=== PATIENT | male | born 1955 | race Caucasian/White ===

== ENCOUNTER → 2019-05-02 | Outpatient (CLI) | payer OTHER | END | disposition home or self-care (01) | LOC: PETCFH 09:17 | PROVIDERS: ATTEND Otolaryngology | DX: C02.9 Malignant neoplasm of tongue, unspecified (principal) | CPT/HCPCS: 78815; A9552 ==

== ENCOUNTER 2019-05-13 09:04 | Outpatient (CLI) ==
[2019-05-13] MEDS ORDERED: MULT-520 PO (09:40)
[2019-05-13] MEDS ORDERED: ATOR20TA37 PO (09:40)
[2019-05-13] MEDS ORDERED: LISI1TAB20 PO (09:40)
[2019-05-13 10:09] LABS: BASOPHILS # (AUTO) 0.05 x10^3/uL (0-0.1); BASOPHILS % (AUTO) 1 % (0-1); EOSINOPHILS # (AUTO) 0.07 x10^3/uL (0-0.4); EOSINOPHILS % (AUTO) 1 % (1-7); LYMPHOCYTES # (AUTO) 1.65 x10^3/uL (1-3.4); LYMPHOCYTES % (AUTO) 19 % (22-44); MD NO; MEAN CORPUSCULAR HGB CONC 33.2 g/dL (33.2-36.2); MEAN CORPUSCULAR VOLUME 90.4 fL (81-97); MONOCYTES # (AUTO) 0.54 x10^3/uL (0.2-0.8); MONOCYTES % (AUTO) 6 % (2-9); NEUTROPHILS # (AUTO) 6.56 x10^3/uL (1.8-6.8); NEUTROPHILS % (AUTO) 74 % (42-75); PLATELET COUNT 290 x10^3/uL (130-400); RED BLOOD COUNT 5.57 x10^6/uL (4.38-5.82)
[2019-05-13 10:13] LABS: CALCIUM 9.3 mg/dL (8.5-10.1); CHLORIDE 107 mmol/L (98-107)
[2019-05-13 10:21] LABS: ALANINE AMINOTRANSFERASE 29 U/L (12-78); ALKALINE PHOSPHATASE 93 U/L (45-117); ANION GAP 7 mmol/L (5-15); BILIRUBIN,TOTAL 0.8 mg/dL (0.2-1.0); TOTAL PROTEIN 8.3 g/dL (6.4-8.2)
== END 2019-05-13 23:59 | disposition home or self-care (01) ==
LOC: STAR 09:04
PROVIDERS: ATTEND Otolaryngology
DX: Z01.818 Encounter for other preprocedural examination (principal); C02.9 Malignant neoplasm of tongue, unspecified
CPT/HCPCS: 36415; 80053; 85025; 93005

== ENCOUNTER 2019-05-16 17:30 | Inpatient (IN) | payer OTHER ==
[~2019-05-16] VITALS: Ht 182.9 cm; Wt 101.7 kg
[~2019-05-16 17:30] MED LIST: ATOR20TA37 PO; LISI1TAB20 PO; MULT-520 PO
[2019-05-21] MEDS ORDERED: LACTATED RINGERS 1,000 ML IV SCH ×2 (15:12→23:00)
[2019-05-21] MEDS ORDERED: ACETAMINOPHEN 500 MG TABLET PO ONE (15:30)
[2019-05-21] MEDS ORDERED: GABAPENTIN 300 MG CAPSULE PO ONE (15:30)
[2019-05-21] MEDS ORDERED: LIDOCAINE 1%-EPI 1:100K, 20ML ONE (15:50)
[2019-05-21] MEDS ORDERED: REMIFENTANIL 2 MG ONE (16:29)
[2019-05-21] MEDS ORDERED: FENTANYL PF 250 MCG/5ML ONE (16:33)
[2019-05-21] MEDS ORDERED: MIDAZOLAM 1 MG/ML, 2ML ONE (17:16)
[2019-05-21] MEDS ORDERED: EPHEDRINE 50 MG/ML, 1ML ONE (17:56)
[2019-05-21] MEDS ORDERED: PROPOFOL 10 MG/ML, 20ML ONE (19:50)
[2019-05-21] MEDS ORDERED: ONDANSETRON 2MG/ML, 2ML ONE (19:50)
[2019-05-21] MEDS ORDERED: DEXAMETHASONE 4 MG/ML, 1ML ONE (19:50)
[2019-05-21] MEDS ORDERED: SUCCINYLCHOLINE 20 MG/ML, 10ML ONE (19:50)
[2019-05-21] MEDS ORDERED: NEOSTIGMINE 1 MG/ML, 10ML ONE (19:50)
[2019-05-21] MEDS ORDERED: CEFAZOLIN 1,000 MG ONE (19:50)
[2019-05-21] MEDS ORDERED: LIDOCAINE-MPF 2% ,5ML ONE (19:50)
[2019-05-21] MEDS ORDERED: ROCURONIUM 10MG/ML,5ML ONE (19:50)
[2019-05-21] MEDS ORDERED: GLYCOPYRROLATE 0.2MG/1ML, 5ML ONE (19:50)
[2019-05-21] MEDS ORDERED: SUGAMMADEX 200 MG/2 ML IVPush ONE (20:14)
[2019-05-21] MEDS ORDERED: MUPIROCIN OINT 2%, 22GM ONE (20:22)
[2019-05-21] MEDS ORDERED: FENTANYL PF 100 MCG/2ML ONE (20:48)
[2019-05-21] MEDS: FENTANYL PF 100 MCG/2ML IV PRN ×2 (20:48→21:00)
[2019-05-21] MEDS ORDERED: OXYcodone 5 MG/5 ML ORAL.SOL UDC ONE (20:48)
[2019-05-21] MEDS ORDERED: MEPERIDINE/PF 25MG/ML,1ML IVPush PRN (21:00)
[2019-05-21] MEDS ORDERED: PROMETHAZINE 25 MG/ML, 1ML IV PRN (21:00)
[2019-05-21] MEDS ORDERED: OXYcodone 5 MG/5 ML ORAL.SOL UDC PO PRN ×2 (21:00→23:00)
[2019-05-21] MEDS ORDERED: MIDAZOLAM 1 MG/ML, 2ML IV PRN (21:00)
[2019-05-21] MEDS ORDERED: hydrALAzine 20 MG/ML, 1ML IV PRN ×2 (21:00→23:00)
[2019-05-21] MEDS ORDERED: HYDROmorphone 2 MG/ML, 1ML IVPush PRN (21:00)
[2019-05-21] MEDS ORDERED: METOPROLOL 1 MG/ML, 5ML IV PRN (21:00)
[2019-05-21] MEDS ORDERED: ALBUTEROL/IPRATROPIUM 2.5MG/0.5MG, 3 ML NPPB PRN (21:00)
[2019-05-21] MEDS ORDERED: METOPROLOL 1 MG/ML, 5ML ONE (21:12)
[2019-05-21] MEDS ORDERED: HYDROmorphone 1 MG/ML, 1ML INJ ONE (21:19)
[2019-05-21 22:00] VITALS: BP 159/91
[2019-05-21] MEDS ORDERED: DIPHENHYDRAMINE 50 MG/ML, 1ML IV PRN (23:00)
[2019-05-21] MEDS ORDERED: DIPHENHYDRAMINE 25 MG CAPSULE PO PRN (23:00)
[2019-05-21] MEDS ORDERED: LORazepam 1MG TABLET PO PRN (23:00)
[2019-05-21] MEDS ORDERED: ONDANSETRON 2MG/ML, 2ML IV PRN (23:00)
[2019-05-21] MEDS ORDERED: LORazepam 2 MG/ML, 1ML IV PRN (23:00)
[2019-05-21] MEDS: morphine SULFATE 10 MG/ML, 1ML IV PRN (23:38)
[2019-05-21 23:45] VITALS: BP 165/94
[2019-05-22] MEDS: morphine SULFATE 10 MG/ML, 1ML IV PRN ×3 (00:52→05:08)
[2019-05-22] MEDS: CEFAZOLIN PMX 2GM/50ML 50 ML IVPB SCH ×2 (00:52→09:02)
[2019-05-22] MEDS ORDERED: LACTATED RINGERS 1,000 ML IV SCH ×2 (01:00→23:00)
[2019-05-22 03:45] VITALS: BP 148/82
[2019-05-22 07:02] VITALS: BP 129/77
[2019-05-22 07:07] LABS: ALBUMIN 3.4 g/dL (3.4-5.0); ANION GAP 6 mmol/L (5-15); CALCIUM 8.7 mg/dL (8.5-10.1); CHLORIDE 107 mmol/L (98-107); CREATININE 0.98 mg/dL (0.7-1.3)
[2019-05-22] MEDS ORDERED: LISINOPRIL 20 MG TABLET PO SCH (09:00)
[2019-05-22] MEDS ORDERED: HYDROCHLOROTHIAZIDE 25 MG TABLET PO SCH (09:00)
[2019-05-22] MEDS ORDERED: AMOX1TAB64 PO (11:18)
[2019-05-22] MEDS ORDERED: OXYC5TAB3 PO (11:18)
[2019-05-22 12:12] VITALS: BP 114/72
[2019-05-22] MEDS ORDERED: ATORVASTATIN 20 MG TABLET PO SCH (21:00)
== END 2019-05-22 12:52 | disposition home or self-care (01) | DRG 130 ==
LOC: ORIP 05-21 14:54 → EDSTATUS 05-21 17:00 → 4NE 05-21 22:10 → DCLOUNGE 05-22 12:11
PROVIDERS: ADMIT Otolaryngology; ATTEND Otolaryngology
PROC: 07T20ZZ Resection of Left Neck Lymphatic, Open Approach (ICD-10-PCS; principal; 2019-05-21 17:00)
PROC: 0CB70ZZ Excision of Tongue, Open Approach (ICD-10-PCS; 2019-05-21 17:00)
DX: C02.9 Malignant neoplasm of tongue, unspecified (principal); I10 Essential (primary) hypertension; E78.5 Hyperlipidemia, unspecified; Z82.49 Family history of ischemic heart disease and other diseases of the circulatory system; Z83.3 Family history of diabetes mellitus; Z82.3 Family history of stroke; M67.48 Ganglion, other site
CPT/HCPCS: 36415; J3490; 80048; 82040; 86850; 86900; 88305; 88307; 88309; 88331; C1729; G0378; J0690; J1100; J1170; J2250; J2405; J2704; J2710; J3010; J0330; J0360; J1200; J2270; J7120